=== PATIENT | female | born 1960 | race Caucasian/White ===

== ENCOUNTER 2017-03-30 18:07 | Emergency (ER) | payer BC ==
[~2017-03-30] VITALS: Ht 157.5 cm; Wt 61.3 kg
[~2017-03-30 18:07] MED LIST: ATIV1TAB10 PO; COEN200C PO; CYCL5TA PO; CYMB60CA3 PO; ESTR62CR PV; ESTROGEN CREAM PV; EXCETAB81 PO; FLEXERIL PO; IMIT50TA PO; LEVO50TA5 PO; LORA10TA2 PO; PANT40TA2 PO; SIMV20TA2 PO; TEGR100T3 PO; TRAZ-136 PO; TRAZ50TA11 PO; TRIC145T22 PO; VITMTA PO; ZANTTAB9 PO
[2017-03-30] MEDS ORDERED: CYMB60CA3 PO (18:17)
[2017-03-30] MEDS ORDERED: TRAZO50TA PO (18:17)
[2017-03-30] MEDS ORDERED: PROT1TAB2 PO (18:19)
[2017-03-30 18:39] LABS: BASO % 0.7 % (0.0-1.0); EOS % 0.3 % (0.0-3.0); LARGE UNSTAINED CELL # 0.1 K/mm3 (0.0-0.4); LARGE UNSTAINED CELL % 1.4 % (0.0-4.0); LYMPH # 1.9 K/mm3 (1.5-4.5); MEAN CORPUSCULAR HEMOGLOBIN 30.4 pg (27.0-33.0); MEAN CORPUSCULAR VOLUME 89.5 fl (80.0-96.0); MONO # 0.4 K/mm3 (0.0-0.8); MONO % 5.5 % (0.0-5.0); NEUTROPHILS # 4.6 K/mm3 (1.8-7.7); NEUTROPHILS % 66.2 % (36.0-66.0); PLATELET COUNT, AUTOMATED 224 k/mm3 (150-450); RED CELL DISTRIBUTION WIDTH 12.5 % (11.5-14.5); WHITE BLOOD COUNT 6.9 K/mm3 (4.0-10.0)
[2017-03-30 18:53] LABS: INR 0.87
[2017-03-30 19:06] LABS: ALBUMIN 4.2 GM/DL (3.2-5.2); ALBUMIN/GLOBULIN RATIO 1.24 (1.00-1.93); ALKALINE PHOSPHATASE 74 U/L (45-117); ALT/SGPT 26 U/L (12-78); ANION GAP 2 MEQ/L (8-16); AST/SGOT 26 U/L (15-37); BILIRUBIN,DIRECT < 0.1 MG/DL (0.0-0.2); BILIRUBIN,TOTAL 0.5 MG/DL (0.2-1.0); BLOOD UREA NITROGEN 11 MG/DL (7-18); CALCIUM LEVEL 9.2 MG/DL (8.5-10.1); CARBON DIOXIDE LEVEL 32 MEQ/L (21-32); CHLORIDE LEVEL 105 MEQ/L (98-107); CREATININE FOR GFR 0.89 MG/DL (0.55-1.02); GLOMERULAR FILTRATION RATE > 60.0 (>51); GLUCOSE, FASTING 85 MG/DL (70-105); POTASSIUM SERUM 4.1 MEQ/L (3.5-5.1); SODIUM LEVEL 139 MEQ/L (136-145); TOTAL PROTEIN 7.6 GM/DL (6.4-8.2)
[2017-03-30] MEDS ORDERED: ASPIRIN 81 MG CHEW TABLET PO ONE (19:30)
[2017-03-30] MEDS ORDERED: ISOVUE-370 76% 100ML VIAL (Q9967) As Ordered ONE (19:37)
[2017-03-30] MEDS ORDERED: MORPHINE 2 MG/ML 1ML SYRINGE IV ONE (20:00)
--- NOTE | 2017-03-30 20:10 | REPUSA ---
CT angiogram of the chest Clinical statement: Chest pain and shortness of breath. Technique: Multiple axial CT images were obtained from the thoracic inlet through the upper abdomen a fter a bolus administration of nonionic intravenous contrast. Coronal and sagittal reconstructions we re also obtained. No comparison is available. Findings: The pulmonary arteries are well-opacified with contrast, with no intraluminal filling defec ts to suggest embolism. The thoracic aorta is unremarkable. Thyroid gland is within normal limits. Th ere is no thoracic lymphadenopathy. There are no pericardial or pleural effusions. The lungs are ben r. Limited imaging of the upper abdomen is unremarkable. There are no suspicious osseous lesions. Impression: Unremarkable CT examination of the chest. No evidence of pulmonary embolism.
[2017-03-30 20:37] LABS: ERYTHROCYTE SEDIMENTATION RATE 7 mm/hr (0-30)
[2017-03-30 23:12] VITALS: BP 115/69
--- NOTE | 2017-03-31 08:13 | REP ---
Portable chest x-ray: Single view. History: Chest pain. Comparison chest x-ray: August 24, 2015. Findings: EKG electrodes are seen. The lungs are well inflated and clear. Heart size is normal. Pulmonary vasculature is not increased. No bony abnormality is seen. Impression: Negative portable chest x-ray. Signed by Eyal Pedroza MD 03/31/2017 08:30 A
--- NOTE | 2017-03-31 08:49 | ECGEPIP ---
Stationary ECG Study [facility] - ED Test Date: 2017-03-30 Pat Name: AMBER GUERIN Department: Room: - Gender: F Museum Attendant: tk : 1960 Requested By: Kayla Umaña Order Number: [id number] Reading MD: Oskar Cook Measurements Intervals [place] Rate: 63 P: 45 NH: 139 QRS: 26 QRSD: 92 T: 72 QT: 376 QTc: 385 Interpretive Statements SINUS RHYTHM INC. RBBB LOW QRS VOLTAGE IN PRECORDIAL LEADS SIMILAR TO 08/24/15 Electronically Signed On 03-31-2017 8:49:06 EDT by Oskar Cook
== END 2017-03-30 23:52 | disposition home or self-care (01) ==
LOC: M ED 18:07
DX: R07.89 Other chest pain (principal); M79.1 Myalgia; E78.5 Hyperlipidemia, unspecified; F32.9 Major depressive disorder, single episode, unspecified; F41.9 Anxiety disorder, unspecified; E03.9 Hypothyroidism, unspecified; M26.609 Unspecified temporomandibular joint disorder, unspecified side; Z79.899 Other long term (current) drug therapy; Z88.5 Allergy status to narcotic agent; Z88.1 Allergy status to other antibiotic agents
CPT/HCPCS: 71010; 71275; 80048; 80076; 82550; 82553; 83690; 83880; 84443; 85025; 85610; 85652; 86140; 93005; 93041; 96374; 99284; Q9967

== ENCOUNTER → 2017-10-05 | Outpatient (REF) | payer BC ==
[2017-10-05 18:23] LABS: INFLUENZA A AMPLIFICATION NEGATIVE (NEGATIVE); INFLUENZA B AMPLIFICATION NEGATIVE (NEGATIVE)
== END ==
LOC: M LAB REF 16:32
DX: Z11.59 Encounter for screening for other viral diseases (principal)
CPT/HCPCS: 87502

== ENCOUNTER 2017-10-16 11:57 | Emergency (ER) | payer OTHER, BC ==
[2017-10-16] MEDS: IBUPROFEN 800 MG TAB PO (12:38)
[2017-10-16] MEDS: ONDANSETRON 4 MG ORAL DISINTEGRATING TAB (S0181) PO (12:39)
[2017-10-16] MEDS: NORCO, ANEXSIA 5/325MG TABLET (HYDROcodone/ACETAMINOPHEN) PO (12:44)
== END 2017-10-16 13:43 | disposition home or self-care (01) ==
LOC: M ED 11:57
DX: S83.91XA Sprain of unspecified site of right knee, initial encounter (principal); X50.9XXA Other and unspecified overexertion or strenuous movements or postures, initial encounter; Y92.89 Other specified places as the place of occurrence of the external cause; E07.9 Disorder of thyroid, unspecified; E78.9 Disorder of lipoprotein metabolism, unspecified; Z87.81 Personal history of (healed) traumatic fracture; Z88.5 Allergy status to narcotic agent; Z88.1 Allergy status to other antibiotic agents; Z79.899 Other long term (current) drug therapy
CPT/HCPCS: 73564

== ENCOUNTER 2018-08-27 09:02 | Emergency (ER) | payer BC, OTHER ==
[~2018-08-27] VITALS: Ht 157.5 cm; Wt 61.8 kg
[2018-08-27 09:02] VITALS: BP 133/60
[~2018-08-27 09:02] MED LIST changes: +LORA0.5T11 PO; -LORA10TA2 PO; +LORA10TA3 PO; +NORCOTAB PO; -PANT40TA2 PO; +PANT40TA3 PO; +PROT1TAB2 PO; -TRAZ-136 PO; +TRAZ-160 PO; +TRAZ-163 PO; -TRAZ50TA11 PO; +TRAZO50TA PO; +ZOFR4TAB14 PO
[2018-08-27] MEDS ORDERED: DULO30CA47 (09:17)
[2018-08-27] MEDS ORDERED: TRAZ-160 PO (09:17)
[2018-08-27] MEDS ORDERED: PANT40TA3 PO (09:17)
[2018-08-27] MEDS ORDERED: PRAV20TA2 PO (09:17)
[2018-08-27] MEDS ORDERED: TESS100C PO (09:40)
[2018-08-27] MEDS ORDERED: AUGM875T28 PO (09:40)
--- NOTE | 2018-08-27 10:02 | REP ---
CHEST PA AND LATERAL: 08/27/2018. Comparison: Portable chest and CT angio 03/30/2017, chest x-ray 08/24/2015. Clinical history: Cough for 4 days. The two views are provided. There is no pleural effusion or dense consolidation. The heart, mediastinal and hilar contours are normal. Aorta and airway were grossly intact. No significant peribronchial thickening evident. Bony thorax shows no compression deformity. No free air under the diaphragm. Impression: 1. No acute cardiopulmonary change. Stable chest. Electronically Signed by Osvaldo Pichardo MD 08/27/2018 09:54 A
== END 2018-08-27 09:45 | disposition home or self-care (01) ==
LOC: M ED 09:02
DX: J02.0 Streptococcal pharyngitis (principal); R05 Cough; E03.9 Hypothyroidism, unspecified; F41.9 Anxiety disorder, unspecified; F32.9 Major depressive disorder, single episode, unspecified; F43.10 Post-traumatic stress disorder, unspecified; G43.909 Migraine, unspecified, not intractable, without status migrainosus; Z88.5 Allergy status to narcotic agent; Z88.1 Allergy status to other antibiotic agents; Z79.899 Other long term (current) drug therapy

== ENCOUNTER → 2018-10-08 | Outpatient (CLI) | payer BC ==
[~2018-10-08] MED LIST changes: +AUGM875T28 PO; +DULO30CA47; +PRAV20TA2 PO; +TESS100C PO
[2018-10-08 10:36] LABS: RHEUMATOID FACTOR QUANT < 10.0 IU/ML (<15.0); TOTAL PROTEIN 6.8 GM/DL (6.4-8.2)
[2018-10-10 14:10] LABS: ANTINUCLEAR ANTIBODIES DIRECT Negative (Negative)
[2018-10-12 07:41] LABS: ALBUMIN % 65.7 % (55.8-66.1); ALPHA-1-GLOBULIN % 3.6 % (2.9-4.9)
[2018-10-12 07:42] LABS: ALBUMIN 4.47 GM/DL (3.29-5.55); ALPHA-1-GLOBULINS 0.24 GM/DL (0.17-0.41); ALPHA-2-GLOBULINS 0.65 GM/DL (0.42-0.99); ALPHA-2-GLOBULINS % 9.6 % (7.1-11.8); BETA-1-GLOBULINS 0.35 GM/DL (0.28-0.60); BETA-1-GLOBULINS % 5.1 % (4.7-7.2); BETA-2-GLOBULINS % 5.9 % (3.2-6.5); GAMMA GLOBULIN % 10.1 % (11.1-18.8); GAMMA GLOBULINS 0.69 GM/DL (0.65-1.58)
== END ==
LOC: M LAB 09:05
PROVIDERS: ATTEND Nurse Practitioner Family
DX: D48.5 Neoplasm of uncertain behavior of skin (principal)

== ENCOUNTER → 2019-01-05 | Outpatient (REF) | payer BC ==
[~2019-01-05] MED LIST changes: -CYCL5TA PO; +CYCL5TAB5 PO; +HYDR-3715 PO; -NORCOTAB PO; +SUCR1SS PO; -TRAZ-160 PO; +TRAZ-252 PO; +TRAZ1TAB10 PO; -TRAZO50TA PO
[2019-01-05 22:02] LABS: APPEARANCE, URINE MANUAL HAZY (CLEAR); COLOR, URINE MANUAL LT YELLOW (YELLOW)
[2019-01-05 22:04] LABS: GLUCOSE, URINE (UA) MANUAL NEGATIVE (NEGATIVE); KETONE, URINE MANUAL NEGATIVE (NEGATIVE); PROTEIN, URINE MANUAL NEGATIVE (NEGATIVE); UROBILINOGEN, URINE MANUAL NORMAL (NORMAL)
[2019-01-05 22:05] LABS: BILIRUBIN, URINE MANUAL NEGATIVE (NEGATIVE); BLOOD URINE MANUAL NEGATIVE (NEGATIVE); LEUKOCYTE ESTERASE, URINE MAN POSITIVE (NEGATIVE); NITRITE, URINE MANUAL NEGATIVE (NEGATIVE)
[2019-01-05 22:12] LABS: RBC, URINE NONE SEEN /hpf (0-3); SQUAMOUS EPITHELIAL CELL URINE SMALL AMOUNT /hpf (SMALL AMT)
[2019-01-05 22:13] LABS: BACTERIA, URINE NONE SEEN
== END ==
LOC: M LAB REF 14:10
PROVIDERS: ATTEND Physician Assistant
DX: N39.0 Urinary tract infection, site not specified (principal)

== ENCOUNTER 2019-01-09 16:10 | Emergency (ER) | payer BC ==
[~2019-01-09] VITALS: Ht 157.5 cm; Wt 59.3 kg
[~2019-01-09 16:10] MED LIST changes: -SUCR1SS PO
[2019-01-09 17:56] LABS: BASO % 0.3 % (0.0-1.0); EOS # 0.2 10^3/uL (0.0-0.50); EOS % 2.5 % (0.0-3.0); HEMATOCRIT 43.7 % (36.0-47.0); HEMOGLOBIN 14.5 g/dl (12.0-15.5); LYMPH # 1.2 10^3/uL (1.5-4.5); MEAN CORPUSCULAR HGB CONC 33.2 g/dl (32.0-36.5); MEAN CORPUSCULAR VOLUME 90.3 fl (80.0-96.0); MONO # 0.7 10^3/uL (0.0-0.8); MONO % 11.4 % (0.0-5.0); NEUTROPHILS # 4.3 10^3/uL (1.8-7.7); NEUTROPHILS % 66.5 % (36.0-66.0); PLATELET COUNT, AUTOMATED 176 10^3/uL (150-450); RED BLOOD COUNT 4.84 10^6/uL (4.00-5.40); WHITE BLOOD COUNT 6.4 10^3/uL (4.0-10.0)
[2019-01-09 18:08] LABS: ALBUMIN 3.8 GM/DL (3.2-5.2); BILIRUBIN,DIRECT 0.1 MG/DL (0.0-0.2); BILIRUBIN,TOTAL 0.5 MG/DL (0.2-1.0); TOTAL PROTEIN 6.7 GM/DL (6.4-8.2)
[2019-01-09] MEDS ORDERED: MORPHINE 4 MG/ML 1ML VIAL/SYRINGE (J2270) IV ONE (19:00)
[2019-01-09] MEDS ORDERED: ONDANSETRON 4MG/2ML VIAL (J2405) IV ONE (19:00)
[2019-01-09] MEDS ORDERED: NS 1,000 ML IV ONE (19:00)
[2019-01-09] MEDS ORDERED: ISOVUE-370 76% 100ML VIAL (Q9967) As Ordered ONE (19:03)
--- NOTE | 2019-01-09 21:14 | REPVR ---
EXAM: CT Abdomen and Pelvis With Contrast EXAM DATE/TIME: 01/09/2019 7:39 PM CLINICAL HISTORY: 58 years old, female; Abdominal pain; Localized; Upper; Additional info: Upper abdominal pain; HX of pancreatits TECHNIQUE: Imaging protocol: Axial computed tomography images of the abdomen and pelvis with intravenous contrast. Coronal and sagittal reformatted images were created and reviewed. Radiation optimization: All CT scans at this facility use at least one of these dose optimization techniques: automated exposure control; mA and/or kV adjustment per patient size (includes targeted exams where dose is matched to clinical indication); or iterative reconstruction. Contrast material: ISOVUE 370; Contrast volume: 100 ml; Contrast route: IV; COMPARISON: CT ABD PELVIS WITH CONTRAST 08/24/2015 4:34 PM FINDINGS: Pleural space: There are very small bilateral pleural effusions. Heart: There is a small pericardial effusion. ABDOMEN: Liver: There is a 1 cm enhancing lesion in the lateral segment the left lobe the liver beneath the liver capsule unchanged from previous. Peripheral nodular enhancement suggests hemangioma. Gallbladder and bile ducts: Normal. No calcified stones. No ductal dilation. Pancreas: No peripancreatic inflammation. There is bifid configuration dominant duct of Santorini drainage Spleen: Normal. No splenomegaly. Adrenals: Normal. No mass. Kidneys and ureters: Normal. No hydronephrosis. Stomach and bowel: Normal. No obstruction. No mucosal thickening. Appendix: The appendix not seen as a separate structure. PELVIS: Bladder: Unremarkable as visualized. Reproductive: Unremarkable as visualized. ABDOMEN and PELVIS: Intraperitoneal space: Normal. No free air. No significant fluid collection. Bones/joints: No acute fracture. No dislocation. Soft tissues: Calcifications within the subcutaneous fat of the left buttock suggests fat necrosis. Vasculature: There is mild arteriosclerotic change of the abdominal aorta with no findings of aneurysm. Lymph nodes: Normal. No enlarged lymph nodes. IMPRESSION: 1. No CT findings to suggest pancreatitis 2. 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 Stable hepatic hemangioma. 4. Small bilateral pleural effusions with small pericardial effusion. No significant change from previous. COMMENT: Consistent with the [employer]'s Incidental Findings Committee Report (J Am Daxa Radiol 2010): Unless the patient's specific circumstances suggest otherwise, any liver lesion 0.5 cm or less, any cystic kidney lesion less than 1.0 cm, and/or any adrenal lesion 1.0 cm or less not otherwise characterized in this report as possessing suspicious or indeterminate imaging features is/are highly likely to be benign and do not require follow-up imaging or biopsy. Electronically signed by: Opal Silvestre On 01/09/2019 21:13:44 PM
[2019-01-09] MEDS ORDERED: GI COCKTAIL 50ML BTL(HYOSCYAMINE/MAALOX/LIDOCAINE VISCOUS)(1:3:1) PO ONE (22:00)
[2019-01-09] MEDS ORDERED: SUCR1SS PO (22:35)
[2019-01-09] MEDS ORDERED: PANT40TA3 PO (22:35)
[2019-01-09 22:39] VITALS: BP 111/52
--- NOTE | 2019-01-10 13:03 | ED PDOC ---
Post-Departure Follow-Up nelly buckner faxed formal report of ct abd/p for fu Jason Godinez MD Jan 10, 2019 13:03
== END 2019-01-09 22:50 | disposition home or self-care (01) ==
LOC: M ED 16:10
DX: K27.9 Peptic ulcer, site unspecified, unspecified as acute or chronic, without hemorrhage or perforation (principal); G43.909 Migraine, unspecified, not intractable, without status migrainosus; D18.09 Hemangioma of other sites; J91.8 Pleural effusion in other conditions classified elsewhere; Z79.899 Other long term (current) drug therapy; Z88.5 Allergy status to narcotic agent; Z88.1 Allergy status to other antibiotic agents
CPT/HCPCS: 74177; 80047; 80076; 81001; 83605; 83690; 85025; 87086; 96361; 96374; 96375; 99284; J2270; J2405; Q9967

== ENCOUNTER 2019-09-28 13:00 | Inpatient (IN) | payer BC ==
[~2019-09-28] VITALS: Ht 157.5 cm; Wt 61.0 kg
[~2019-09-28 13:00] MED LIST changes: -COEN200C PO; -DULO30CA47; +DULO30CA47 PO; -LORA0.5T11 PO; +LORA0.5T5 PO; +RA C200C2 PO; -SIMV20TA2 PO; +SIMV20TA22 PO; +SUCR1SS PO; -TRAZ-163 PO; +TRAZ-257 PO
[2019-09-28] MEDS ORDERED: DULO1CAP5 (13:13)
[2019-09-28] MEDS ORDERED: ISOVUE-370 76% 100ML VIAL (Q9967) As Ordered ONE (13:54)
[2019-09-28 13:58] LABS: BASO # 0.1 10^3/uL (0.0-0.2); BASO % 0.8 % (0.0-1.0); HEMATOCRIT 44.7 % (36.0-47.0); HEMOGLOBIN 14.6 g/dl (12.0-15.5); LYMPH # 1.9 10^3/uL (1.5-5.0); LYMPH % 23.6 % (24.0-44.0); MEAN CORPUSCULAR HEMOGLOBIN 29.3 pg (27.0-33.0); MEAN CORPUSCULAR HGB CONC 32.7 g/dl (32.0-36.5); MEAN CORPUSCULAR VOLUME 89.6 fl (80.0-96.0); MONO # 0.5 10^3/uL (0.0-0.8); MONO % 6.1 % (0.0-5.0); NEUTROPHILS # 4.6 10^3/uL (1.5-8.5); NEUTROPHILS % 57.2 % (36.0-66.0); PLATELET COUNT, AUTOMATED 201 10^3/uL (150-450); RED BLOOD COUNT 4.99 10^6/uL (4.00-5.40)
[2019-09-28] MEDS ORDERED: ONDANSETRON 4MG/2ML VIAL (J2405) IV ONE (14:00)
[2019-09-28] MEDS ORDERED: NS 1,000 ML IV ONE (14:00)
[2019-09-28 14:23] LABS: ALBUMIN 4.1 GM/DL (3.2-5.2); BILIRUBIN,DIRECT 0.1 MG/DL (0.0-0.2); BILIRUBIN,TOTAL 0.7 MG/DL (0.2-1.0); TOTAL PROTEIN 6.8 GM/DL (6.4-8.2)
[2019-09-28] MEDS: MORPHINE 2 MG/ML 1ML VIAL (J2270) IV PRN ×3 (14:34→20:56)
--- NOTE | 2019-09-28 14:38 | REP ---
Clinical: Left-sided abdominal pain. Technique: Axial contrast enhanced images from the lung bases to the pubic symphysis with coronal and sagittal re-formations using 100 ml Isovue 370 intravenous contrast material. Comparison: 01/09/2019. Findings: Small pericardial effusion noted and similar to prior examination. Liver, spleen, pancreas, gallbladder, bilateral adrenal glands and kidneys are normal. A mild gastritis cannot definitively be excluded and should be correlated with symptoms. The small and large bowel is without obstruction or acute inflammatory process. Pelvis demonstrates normal bladder and age-appropriate uterus/adnexa. No pelvic fluid or ascites. No adenopathy. No free air. Abdominal aorta without aneurysm or dissection. Musculoskeletal structures without acute abnormality. Impression: 1. A mild gastritis cannot be excluded and should be correlated clinically. 2. Small pericardial effusion unchanged compared to prior examinations. 3. No further acute abdominopelvic pathology appreciated. No ascites, focal inflammatory stranding, or adenopathy. Electronically Signed by Dwayne Guzman MD 09/28/2019 02:30 P
[2019-09-28] MEDS ORDERED: PROT1TAB2 PO (16:10)
[2019-09-28] MEDS ORDERED: COQ1200C PO (16:10)
[2019-09-28] MEDS ORDERED: VITMTA PO (16:10)
[2019-09-28] MEDS ORDERED: PRAV20TA2 PO (16:10)
[2019-09-28] MEDS ORDERED: CVS1500T PO (16:10)
[2019-09-28] MEDS ORDERED: IBUP200C28 PO (16:10)
[2019-09-28] MEDS ORDERED: RA T500C2 PO (16:10)
[2019-09-28] MEDS ORDERED: LORA0.5T5 PO (16:10)
[2019-09-28] MEDS ORDERED: LORazepam 0.5 MG TAB PO PRN (18:30)
[2019-09-28] MEDS ORDERED: PILL CUTTER 1 EACH XX PRN (19:00)
[2019-09-28 19:25] LABS: CHOLESTEROL RISK RATIO 7.808 (<5)
[2019-09-28 20:35] VITALS: BP 124/76
[2019-09-28] MEDS: LORazepam 0.5 MG TAB PO SCH (20:56)
[2019-09-28] MEDS: traZODone 50 MG TAB PO SCH (20:56)
[2019-09-28] MEDS: NS 1,000 ML IV SCH (20:57)
--- NOTE | 2019-09-28 22:41 | HPEPDOC ---
General Date of Admission Sep 28, 2019 at 18:30 Date of Service: Sep 28, 2019 Attending Physician: SEBASTIÁN BENDER MD Chief Complaint The patient is a 58-year-old female admitted with a reason for visit of Pancreatitis. Source: Patient, Family Timing/Duration: 24 hours Severity: Moderate Associated Symptoms: Other (abdominal pain) History of Present Illness 58 yo woman with GERD, HLD non compliant with her statin, anxiety, depression, hypothyroidism and prior history of idiopathic pancreatitis 5 years ago who presented to the ED wtih acute epigastric pain over 24 hours with associated prior constipation and trying to manage it with stool softeners at home. She reports nausea and severe abdominal pain when she attempted to eat that prompted her presentation. In the ED, she was hemodynamically stable and afebrile and was reporting severe epigastric pain. Studies were notable for lipase to 1103, hyperlipidemia and triglyceridemia to 309, WBC 8, Hgb 14,6, lactate wnl, Cr 0.8, bland UA and CT A/P that showed a previously noted small pericardial effusion and no evidence of radiologically apparent pancreatitis. She was given 1L Ns, morphine and zofran and admitted to medicine for acute pancreatitis. Home Medications Scheduled Duloxetine HCl (Duloxetine HCl) 30 Mg Cap, 90 MG PO DAILY, (Reported) Glucosamine HCl (Glucosamine HCl) 1,500 Mg Tablet, 1,500 MG PO DAILY, (Reported) Lorazepam (Lorazepam) 0.5 Mg Tablet, 0.5 MG PO QHS, (Reported) Multivitamins (Thera M Plus Tablet) 1 Each Tablet, 1 TAB PO DAILY, (Reported) Pravastatin Sodium (Pravastatin Sodium) 20 Mg Tablet, 20 MG PO DAILY, (Reported) Trazodone HCl (Trazodone HCl) 50 Mg Tab, 75 MG PO QHS, (Reported) Turmeric Root Extract (Turmeric) 500 Mg Capsule, 500 MG PO DAILY, (Reported) Ubidecarenone (Co Q-10) 200 Mg Capsule, 200 MG PO DAILY, (Reported) Scheduled PRN Ibuprofen (Ibuprofen) 200 Mg Capsule, 800 MG PO QID PRN for PAIN, (Reported) Lorazepam (Lorazepam) 0.5 Mg Tab, 0.5 MG PO DAILY PRN for ANXIETY, (Reported) Pantoprazole Sodium (Protonix) 40 Mg Tablet.dr, 40 MG PO DAILY PRN for ULCERS, (Reported) Allergies Coded Allergies: tetracycline (Verified Allergy, Mild, rash, 01/09/19) codeine (Verified Adverse Reaction, Mild, vomits, 01/09/19) Past Medical History Medical History pancreatitis HLD anxiety depression OA GERD Surgical History tubal ligation ACL repair multiple ex-laps Social History Alcohol: Denies Drugs: denies Recent Travel/Sick Contacts: Denies: Recent travel, Recent sick contacts Psychosocial History: Anxiety, Depression A-FIB/CHADSVASC A-FIB History Current/History of A-Fib/PAF?: No Current PO Anticoag Therapy: No Age/Risk Factor Scoring CHADSVASC: CHADSVASC Response (Comments) Value Age Risk Factor Age < 65 years old 0 Gender Risk Factor Female 1 Hx of CHF No 0 Hx of HTN No 0 Hx of Stroke/TIA/or VTE No 0 Hx of Diabetes No 0 Hx of Vascular Disease No 0 Total 1 Treatment Treatment ordered: NONE Reason Anticoagulant not given: Not indicated/[id number] Review of Systems Constitutional: Denies: Chills, Fever, Night Sweats Eyes: Denies: Pain, Vision change ENT: Denies: Head Aches, Ear Pain, Dysphagia Skin: Denies: Rash, Lesions, Jaundice, Bruising, Itching, Dry, Breakdown, Nail Changes, Other Pulmonary: Denies: Dyspnea, Cough Cardiovascular: Denies: Chest Pain, Palpitations, Orthopnea, Paroxysmal Noc. Dyspnea, Lt Headedness Gastrointestinal: Reports: Nausea, Vomiting, Abdominal Pain, Constipation Genitourinary: Denies: Dysuria, Frequency, Incontinence, Retention Hematologic: Denies: Bruising, Bleeding Excessively Musculoskeletal: Denies: Neck Pain, Back Pain, Joint Pain, Muscle Pain, Spasms Neurological: Denies: Weakness, Numbness, Change in speech, Confusion Psych: Reports: Mood Normal; Denies: Depression, Memory Issues Physical Examination General Exam: Positive: Alert, No Acute Distress Eye Exam: Positive: PERRLA, Conjunctiva & lids normal, EOMI; Negative: Sclera icteric ENT Exam: Positive: Atraumatic, Mucous membr. moist/pink, Pharynx Normal Neck Exam: Positive: Supple; Negative: JVD, thyromegaly Chest Exam: Negative: Clear to auscultation, Normal air movement, Rales, Rhonchi, Wheezing, Diminished, Other Heart Exam: Positive: Rate Normal, Regular Rhythm, Normal S1, Normal S2; Negative: Murmurs, Rubs Abdomen Exam: Positive: Normal bowel sounds, Soft, Tenderness (epigastric but also diffuse); Negative: Hepatospenomegaly Extremity Exam: Positive: Normal pulses; Negative: Clubbing, Cyanosis, Edema Skin Exam: Positive: Nl turgor and temperature; Negative: Breakdown, Lesion Neuro Exam: Positive: Normal Speech, Strength at 5/5 X4 ext, Normal Tone, Cranial Nerves 3-12 NL, Reflexes 2+ Psych Exam: Positive: Mental status NL, Mood NL, Oriented x 3 Vital Signs Vital Signs Date Time Temp Pulse Resp B/P (MAP) Pulse Ox O2 Delivery O2 Flow Rate FiO2 09/28/19 21:06 15 09/28/19 19:39 98.0 71 120/66 (84) 94 Room Air Laboratory Data Labs 24H Laboratory Tests 2 09/28/19 13:37: Lactic Acid Level 0.6 09/28/19 13:38: Immature Granulocyte % (Auto) 0.3, Neutrophils (%) (Auto) 57.2, Lymphocytes (%) (Auto) 23.6L, Monocytes (%) (Auto) 6.1H, Eosinophils (%) (Auto) 12.0H, Basophils (%) (Auto) 0.8, Neutrophils # (Auto) 4.6, Lymphocytes # (Auto) 1.9, Monocytes # (Auto) 0.5, Eosinophils # (Auto) 1.0H, Basophils # (Auto) 0.1, Nucleated Red Blood Cells % (auto) 0.0, Total Bilirubin 0.7, Direct Bilirubin 0.1, Aspartate Amino Transf (AST/SGOT) 19, Alanine Aminotransferase (ALT/SGPT) 22, Alkaline Phosphatase 68, Total Protein 6.8, Albumin 4.1, Albumin/Globulin Ratio 1.52, Triglycerides Level 309H, Total Cholesterol 367H, LDL Cholesterol 258H, Non-HDL Cholesterol (LDL + VLDL) 320, Total HDL Cholesterol 47, Cholesterol/HDL Ratio 7.808H, Lipase 1103H 09/28/19 13:43: POC Glucose (Misc Panel) 92, POC Sodium (Misc Panel) 139, POC Potassium (Misc Panel) 4.3, POC Chloride (Misc Panel) 101, POC Total CO2 (Misc Panel) 28.0H, POC Blood Urea Nitrogen (Misc Panel 10, POC Ionized Calcium (Misc Panel) 4.7, POC Creatinine (Misc Panel) 0.8, POC Hematocrit (Misc Panel) 43.0 09/28/19 15:47: Urine Color COLORLESS, Urine Appearance CLEAR, Urine pH 7.0, Urine Specific Springer 1.026, Urine Protein NEGATIVE, Urine Glucose (UA) NEGATIVE, Urine Ketones NEGATIVE, Urine Blood NEGATIVE, Urine Nitrite NEGATIVE, Urine Bilirubin NEGATIVE, Urine Urobilinogen 0.2, Urine Leukocyte Esterase NEGATIVE, Urine WBC (Auto) 2, Urine RBC (Auto) 1, Urine Hyaline Casts (Auto) 0, Urine Bacteria (Auto) NEGATIVE, Urine Squamous Epithelial Cells 0, Urine Sperm (Auto) CBC/BMP Laboratory Tests 09/28/19 13:38 Assessment/Plan 58 yo woman with GERD, HLD non compliant with her statin, anxiety, depression, hypothyroidism and prior history of idiopathic pancreatitis 5 years ago who presented to the ED with acute epigastric now being admitted to medicine for acute pancreatitis. Pancreatitis: unclear precipitant. Has HLD with hypertriglyceridemia and non complaint with statin, no alcohol or other culprit drugs -s/p 1L NS -fluids at 200cc/hr -NPO -morphine 2Q4HP GERD: continue protonix Psych meds: continue PRN Ativan, trazodone and duloxetine HLD: restart pravastatin DVT ppx: lovenox Plan / VTE VTE Prophylaxis Ordered?: Yes SEBASTIÁN BENDER MD Sep 28, 2019 22:41
[2019-09-29] MEDS: NS 1,000 ML IV SCH ×7 (00:51→21:10)
[2019-09-29] MEDS: MORPHINE 2 MG/ML 1ML VIAL (J2270) IV PRN ×3 (04:15→21:21)
[2019-09-29 05:49] VITALS: BP 109/61
--- NOTE | 2019-09-29 06:29 | IPNPDOC ---
Text Note Date of Service The patient was seen on 09/29/19. NOTE Subjective: -No complaints this morning -Reports that she is constipated -Pain is well controlled Objective: General: Alert, No Acute Distress Eye: PERRLA, Conjunctiva & lids normal, EOMI, anicteric ENT: MMM Neck: supple, no JVD Chest: Clear to auscultation, Normal air movement, without rales, rhonchi or wheezing Heart: RRR, no mrg Abdomen: Normal bowel sounds, Soft, mildly tender epigastrum on palpation, no distention and no noted organomegaly Extremity: WWP, no LE edema Skin: no flushing, lesions, rashes Neuro: Normal Speech, Strength at 5/5 X4 ext, Cranial Nerves 3-12 NL Psych: Mental status NL, Mood NL, Oriented x 3 Labs: reviewed Assessment: 58 yo woman with GERD, HLD non compliant with her statin, anxiety, depression, hypothyroidism and prior history of idiopathic pancreatitis 5 years ago who presented to the ED with acute epigastric now being admitted to medicine for acute pancreatitis. Pancreatitis: Epigastric pain with N/V and elevated lipase with unclear precipitant. Has HLD with hypertriglyceridemia and non complaint with statin, no alcohol or other culprit drugs -continue fluids at 200cc/hr -NPO until patient reports abdominal pain improvement and will slowly reintroduce diet -morphine 2Q4HP -s/p CT A/P without kvng abdominal pathology GERD: continue protonix Psych meds: continue PRN Ativan, trazodone and duloxetine HLD: switch low dose pravastatin to lipitor 40 DVT ppx: lovenox VS,Fishbone, I+O VS, Fishbone, I+O Laboratory Tests 09/28/19 13:38 Vital Signs Date Time Temp Pulse Resp B/P (MAP) Pulse Ox O2 Delivery O2 Flow Rate FiO2 09/29/19 04:25 16 09/28/19 20:35 97.9 79 124/76 (92) 96 Room Air I&O- Last 24 Hours up to 6 AM 09/29/19 06:00 Intake Total 1000 ml Output Total 400 ml Balance 600 ml SEBASTIÁN BENDER MD Sep 29, 2019 06:29
[2019-09-29 08:07] LABS: HEMATOCRIT 36.5 % (36.0-47.0); MEAN CORPUSCULAR HEMOGLOBIN 29.6 pg (27.0-33.0); MEAN CORPUSCULAR HGB CONC 32.3 g/dl (32.0-36.5); MEAN CORPUSCULAR VOLUME 91.5 fl (80.0-96.0); PLATELET COUNT, AUTOMATED 152 10^3/uL (150-450); RED BLOOD COUNT 3.99 10^6/uL (4.00-5.40); WHITE BLOOD COUNT 5.5 10^3/uL (4.0-10.0)
[2019-09-29 08:13] LABS: HEMOGLOBIN 11.8 g/dl (12.0-15.5)
[2019-09-29] MEDS: PANTOPRAZOLE 40MG TAB (PROTONIX) PO SCH (08:17)
[2019-09-29] MEDS: ATORVASTATIN 20 MG TAB PO SCH (08:17)
[2019-09-29] MEDS: MULTIVITAMINS/MINERALS THERAP 1 TAB PO SCH (08:17)
[2019-09-29] MEDS: DULoxetine 30 MG CAP (CYMBALTA) PO SCH (08:17)
[2019-09-29] MEDS: ENOXAPARIN 40 MG/0.4 ML SYRINGE (J1650) SC SCH (08:17)
[2019-09-29 08:37] LABS: ALBUMIN 2.8 GM/DL (3.2-5.2); ALT/SGPT 16 U/L (12-78); BILIRUBIN,TOTAL 0.5 MG/DL (0.2-1.0); BLOOD UREA NITROGEN 8 MG/DL (7-18); CALCIUM LEVEL 7.5 MG/DL (8.5-10.1); CARBON DIOXIDE LEVEL 30 MEQ/L (21-32); CHLORIDE LEVEL 114 MEQ/L (98-107); CREATININE FOR GFR 0.73 MG/DL (0.55-1.30); GLOMERULAR FILTRATION RATE > 60.0 (>51); GLUCOSE, FASTING 89 MG/DL (70-100); POTASSIUM SERUM 3.9 MEQ/L (3.5-5.1); SODIUM LEVEL 145 MEQ/L (136-145)
[2019-09-29] MEDS ORDERED: PRAVASTATIN 20 MG TAB PO SCH (09:00)
[2019-09-29 14:00] VITALS: BP 104/68
[2019-09-29] MEDS: MOM 30ML SUSPENSION UDC PO PRN (18:51)
[2019-09-29] MEDS: LORazepam 0.5 MG TAB PO SCH (21:09)
[2019-09-29] MEDS: SENOKOT S TAB PO SCH (21:10)
[2019-09-29] MEDS: traZODone 50 MG TAB PO SCH (21:10)
[2019-09-29 22:25] VITALS: BP 132/67
[2019-09-30] MEDS: NS 1,000 ML IV SCH ×3 (00:16→14:12)
[2019-09-30 06:00] VITALS: BP 106/56
[2019-09-30 08:12] LABS: HEMATOCRIT 38.7 % (36.0-47.0); HEMOGLOBIN 12.9 g/dl (12.0-15.5); MEAN CORPUSCULAR HEMOGLOBIN 29.9 pg (27.0-33.0); MEAN CORPUSCULAR HGB CONC 33.3 g/dl (32.0-36.5); MEAN CORPUSCULAR VOLUME 89.6 fl (80.0-96.0); PLATELET COUNT, AUTOMATED 146 10^3/uL (150-450); RED BLOOD COUNT 4.32 10^6/uL (4.00-5.40); WHITE BLOOD COUNT 9.2 10^3/uL (4.0-10.0)
[2019-09-30] MEDS: ENOXAPARIN 40 MG/0.4 ML SYRINGE (J1650) SC SCH (08:26)
[2019-09-30] MEDS: DULoxetine 30 MG CAP (CYMBALTA) PO SCH (08:26)
[2019-09-30] MEDS: SENOKOT S TAB PO SCH ×2 (08:26→20:54)
[2019-09-30] MEDS: ATORVASTATIN 20 MG TAB PO SCH (08:26)
[2019-09-30] MEDS: MULTIVITAMINS/MINERALS THERAP 1 TAB PO SCH (08:26)
[2019-09-30] MEDS: PANTOPRAZOLE 40MG TAB (PROTONIX) PO SCH (08:27)
[2019-09-30] MEDS: MOM 30ML SUSPENSION UDC PO PRN (08:27)
[2019-09-30 08:38] LABS: ALBUMIN 2.8 GM/DL (3.2-5.2); ALT/SGPT 18 U/L (12-78); BILIRUBIN,TOTAL 0.7 MG/DL (0.2-1.0); BLOOD UREA NITROGEN 9 MG/DL (7-18); CALCIUM LEVEL 7.8 MG/DL (8.5-10.1); CARBON DIOXIDE LEVEL 20 MEQ/L (21-32); CHLORIDE LEVEL 115 MEQ/L (98-107); CREATININE FOR GFR 0.56 MG/DL (0.55-1.30); GLOMERULAR FILTRATION RATE > 60.0 (>51); GLUCOSE, FASTING 59 MG/DL (70-100); POTASSIUM SERUM 4.2 MEQ/L (3.5-5.1); SODIUM LEVEL 142 MEQ/L (136-145); TOTAL PROTEIN 5.3 GM/DL (6.4-8.2)
[2019-09-30 09:15] LABS: LIPASE 199 U/L (73-393); TRIGLYCERIDES LEVEL 135 MG/DL (<150)
[2019-09-30 14:00] VITALS: BP 111/51
[2019-09-30] MEDS ORDERED: IBUPROFEN 600 MG TAB PO PRN (14:00)
[2019-09-30] MEDS ORDERED: FLEET ENEMA PR PRN (17:15)
--- NOTE | 2019-09-30 19:21 | IPNPDOC ---
Text Note Date of Service The patient was seen on 09/30/19. NOTE Subjective: -No complaints this morning, pain much improved, no morphine since midnight, asking to try some food -Reports that she is still constipated Objective: General: Alert, No Acute Distress Eye: PERRLA, Conjunctiva & lids normal, EOMI, anicteric ENT: MMM Neck: supple, no JVD Chest: Clear to auscultation, Normal air movement, without rales, rhonchi or wheezing Heart: RRR, no mrg Abdomen: Normal bowel sounds, Soft, non tender, no distention and no noted organomegaly Extremity: WWP, no LE edema Skin: no flushing, lesions, rashes Neuro: Normal Speech, Strength at 5/5 X4 ext, Cranial Nerves 3-12 NL Psych: Mental status NL, Mood NL, Oriented x 3 Labs: reviewed. Lipase now 199, triglycerides 135 Assessment: 58 yo woman with GERD, HLD non compliant with her statin, anxiety, depression, hypothyroidism and prior history of idiopathic pancreatitis 5 years ago who p resented to the ED with acute epigastric now admitted to medicine for acute pancreatitis that is improving. Pancreatitis: Epigastric pain with N/V and elevated lipase with unclear precipitant. Has HLD with hypertriglyceridemia and non complaint with statin, no alcohol or other culprit drugs -reduce fluids at 100cc/hr -had clears for breakfast, will now switch to regular for tomorrow AM -morphine 2Q4HP -s/p CT A/P without kvng abdominal pathology GERD: continue protonix Psych meds: continue PRN Ativan, trazodone and duloxetine HLD: lipitor 40 DVT ppx: lovenox VS,Fishbone, I+O VS, Fishbone, I+O Laboratory Tests 09/30/19 07:51 Vital Signs Date Time Temp Pulse Resp B/P (MAP) Pulse Ox O2 Delivery O2 Flow Rate FiO2 09/30/19 14:00 98.5 98 18 111/51 (71) 82 Room Air I&O- Last 24 Hours up to 6 AM 09/30/19 06:00 Intake Total 3300 ml Output Total 800 ml Balance 2500 ml SEBASTIÁN BENDER MD Sep 30, 2019 19:21
[2019-09-30 20:00] VITALS: BP 107/55
[2019-09-30] MEDS: traZODone 50 MG TAB PO SCH (20:54)
[2019-09-30] MEDS: LORazepam 0.5 MG TAB PO SCH (20:54)
[2019-10-01] MEDS: NS 1,000 ML IV SCH ×2 (01:16→10:12)
[2019-10-01 06:52] VITALS: BP 116/65
[2019-10-01 07:27] LABS: HEMATOCRIT 36.4 % (36.0-47.0); HEMOGLOBIN 12.4 g/dl (12.0-15.5); MEAN CORPUSCULAR HEMOGLOBIN 29.7 pg (27.0-33.0); MEAN CORPUSCULAR HGB CONC 34.1 g/dl (32.0-36.5); MEAN CORPUSCULAR VOLUME 87.3 fl (80.0-96.0); PLATELET COUNT, AUTOMATED 156 10^3/uL (150-450); RED BLOOD COUNT 4.17 10^6/uL (4.00-5.40); WHITE BLOOD COUNT 5.2 10^3/uL (4.0-10.0)
[2019-10-01 07:56] LABS: ALBUMIN 2.7 GM/DL (3.2-5.2); ALT/SGPT 16 U/L (12-78); BILIRUBIN,TOTAL 0.6 MG/DL (0.2-1.0); BLOOD UREA NITROGEN 4 MG/DL (7-18); CALCIUM LEVEL 8.1 MG/DL (8.5-10.1); CARBON DIOXIDE LEVEL 28 MEQ/L (21-32); CHLORIDE LEVEL 114 MEQ/L (98-107); CREATININE FOR GFR 0.65 MG/DL (0.55-1.30); GLOMERULAR FILTRATION RATE > 60.0 (>51); GLUCOSE, FASTING 85 MG/DL (70-100); POTASSIUM SERUM 3.7 MEQ/L (3.5-5.1); SODIUM LEVEL 143 MEQ/L (136-145)
[2019-10-01] MEDS: ATORVASTATIN 20 MG TAB PO SCH (09:01)
[2019-10-01] MEDS: SENOKOT S TAB PO SCH (09:01)
[2019-10-01] MEDS: PANTOPRAZOLE 40MG TAB (PROTONIX) PO SCH (09:01)
[2019-10-01] MEDS: ENOXAPARIN 40 MG/0.4 ML SYRINGE (J1650) SC SCH (09:01)
[2019-10-01] MEDS: MULTIVITAMINS/MINERALS THERAP 1 TAB PO SCH (09:01)
[2019-10-01] MEDS: DULoxetine 30 MG CAP (CYMBALTA) PO SCH (09:01)
--- NOTE | 2019-10-01 10:42 | DS.PDOC ---
Discharge Summary General Date of Admission Sep 28, 2019 at 18:30 Date of Discharge 10/01/2019 Attending Physician: SEBASTIÁN BENDER MD Discharge Summary PROCEDURES PERFORMED DURING STAY: None ADMITTING DIAGNOSES: 1. Acute pancreatitis DISCHARGE DIAGNOSES: 1. Acute pancreatitis 2. HLD 3. Anxiety 4. depression 5. Osteoarthritis 6. GERD COMPLICATIONS/CHIEF COMPLAINT: Pancreatitis. HISTORY OF PRESENT ILLNESS: 58 yo woman with GERD, HLD non compliant with her statin, anxiety, depression, hypothyroidism and prior history of idiopathic pancreatitis 5 years ago who presented to the ED wtih acute epigastric pain over 24 hours with associated prior constipation and trying to manage it with stool softeners at home. She reports nausea and severe abdominal pain when she att empted to eat that prompted her presentation. HOSPITAL COURSE: In the ED, she was hemodynamically stable and afebrile and was reporting severe epigastric pain. Studies were notable for lipase to 1103, hyperlipidemia and triglyceridemia to 309, WBC 8, Hgb 14,6, lactate wnl, Cr 0.8, bland UA and CT A /P that showed a previously noted small pericardial effusion and no evidence of radiologically apparent pancreatitis. She was given 1L Ns, morphine and zofran and admitted to medicine for acute pancreatitis. She was treated supportively with fluids and PRN morphine with eventual improvement by day 2 and by day 3 she is now eating a regular diet and back to baseline and being discharged home. I checked her lipid profile and she has HLD with hypertriglyceridemia and she corroborated not taking her pravastatin due to myalgias and I switched her to lipitor. DISCHARGE MEDICATIONS: Please see below. ALLERGIES: Please see below. PHYSICAL EXAMINATION ON DISCHARGE: VITAL SIGNS: Please see below. General: Alert, No Acute Distress Eye: PERRLA, Conjunctiva & lids normal, EOMI, anicteric ENT: MMM Neck: supple, no JVD Chest: Clear to auscultation, Normal air movement, without rales, rhonchi or whe ezing Heart: RRR, no mrg Abdomen: Normal bowel sounds, Soft, non tender, no distention. Extremity: WWP, no LE edema Skin: no flushing, lesions, rashes Neuro: Normal Speech, Strength at 5/5 X4 ext, Cranial Nerves 3-12 NL Psych: Mental status NL, Mood NL, Oriented x 3 LABORATORY DATA: Please see below. IMAGIN. A mild gastritis cannot be excluded and should be correlated clinically. 2. Small pericardial effusion unchanged compared to prior examinations. 3. No further acute abdominopelvic pathology appreciated. No ascites, focalinflammatory stranding, or adenopathy. PROGNOSIS: Good ACTIVITY: As tolerated. DIET: regular DISCHARGE PLAN: Home, please take your lipitor. DISPOSITION: Home DISCHARGE INSTRUCTIONS: 1. Home, please take your lipitor. ITEMS TO FOLLOWUP ON ON OUTPATIENT: 1. Abdominal pain DISCHARGE CONDITION: Stable. TIME SPENT ON DISCHARGE: 37 minutes. Vital Signs/I&Os Vital Signs Date Time Temp Pulse Resp B/P (MAP) Pulse Ox O2 Delivery O2 Flow Rate FiO2 10/01/19 06:52 98.6 97 20 116/65 (82) 96 Room Air I&O- Last 24 Hours up to 6 AM 10/01/19 06:00 Intake Total 3960 ml Output Total 1400 ml Balance 2560 ml Laboratory Data Labs 24H Laboratory Tests 2 10/01/19 06:35: Anion Gap 1L, Glomerular Filtration Rate > 60.0, Calcium Level 8.1L, Total Bilirubin 0.6, Aspartate Amino Transf (AST/SGOT) 21, Alanine Aminotransferase (ALT/SGPT) 16, Alkaline Phosphatase 50, Total Protein 5.0L, Albumin 2.7L, Albumin/Globulin Ratio 1.17 10/01/19 06:36: Nucleated Red Blood Cells % (auto) 0.0 CBC/BMP Laboratory Tests 10/01/19 06:35 10/01/19 06:36 Discharge Medications Scheduled Duloxetine HCl (Duloxetine HCl) 30 Mg Cap, 90 MG PO DAILY, (Reported) Glucosamine HCl (Glucosamine HCl) 1,500 Mg Tablet, 1,500 MG PO DAILY, (Reported) Lorazepam (Lorazepam) 0.5 Mg Tablet, 0.5 MG PO QHS, (Reported) Multivitamins (Thera M Plus Tablet) 1 Each Tablet, 1 TAB PO DAILY, (Reported) Pravastatin Sodium (Pravastatin Sodium) 20 Mg Tablet, 20 MG PO DAILY, (Reported) Trazodone HCl (Trazodone HCl) 50 Mg Tab, 75 MG PO QHS, (Reported) Turmeric Root Extract (Turmeric) 500 Mg Capsule, 500 MG PO DAILY, (Reported) Ubidecarenone (Co Q-10) 200 Mg Capsule, 200 MG PO DAILY, (Reported) Scheduled PRN Ibuprofen (Ibuprofen) 200 Mg Capsule, 800 MG PO QID PRN for PAIN, (Reported) Lorazepam (Lorazepam) 0.5 Mg Tab, 0.5 MG PO DAILY PRN for ANXIETY, (Reported) Pantoprazole Sodium (Protonix) 40 Mg Tablet.dr, 40 MG PO DAILY PRN for ULCERS, (Reported) Allergies Coded Allergies: tetracycline (Verified Allergy, Mild, rash, 01/09/19) codeine (Verified Adverse Reaction, Mild, vomits, 01/09/19) SEBASTIÁN BENDER MD Oct 01, 2019 10:42
[2019-10-01] MEDS ORDERED: ATOR40TA75 PO (10:44)
[2019-10-01] MEDS ORDERED: SENN-52 PO (10:44)
== END 2019-10-01 13:25 | disposition home or self-care (01) | DRG 282 ==
LOC: M ED 13:00 → EDBEDREQSVC 15:08 → M ED INP 18:30 → ENRESERVDT 20:00 → ENRESERVTM 20:00 → M MS5PR 20:30
PROVIDERS: ADMIT Internal Medicine; ATTEND Internal Medicine
DX: K85.90 Acute pancreatitis without necrosis or infection, unspecified (principal); F32.9 Major depressive disorder, single episode, unspecified; K21.9 Gastro-esophageal reflux disease without esophagitis; E78.5 Hyperlipidemia, unspecified; F41.9 Anxiety disorder, unspecified; M19.90 Unspecified osteoarthritis, unspecified site; Z91.14 Patient's other noncompliance with medication regimen; E03.9 Hypothyroidism, unspecified; Z79.899 Other long term (current) drug therapy; Z88.5 Allergy status to narcotic agent; Z88.8 Allergy status to other drugs, medicaments and biological substances

== ENCOUNTER → 2019-10-19 | Outpatient (REF) | payer BC ==
[~2019-10-19] MED LIST changes: +ATOR40TA75 PO; +COQ1200C PO; +CVS1500T PO; +DULO1CAP5; +IBUP200C28 PO; +RA T500C2 PO; +SENN-52 PO
[2019-10-19 19:46] LABS: ALBUMIN 4.4 GM/DL (3.2-5.2); ALT/SGPT 34 U/L (12-78); BILIRUBIN,TOTAL 0.7 MG/DL (0.2-1.0); BLOOD UREA NITROGEN 7 MG/DL (7-18); CALCIUM LEVEL 9.2 MG/DL (8.5-10.1); CARBON DIOXIDE LEVEL 32 MEQ/L (21-32); CHLORIDE LEVEL 103 MEQ/L (98-107); CREATININE FOR GFR 0.89 MG/DL (0.55-1.30); FREE T4 1.01 NG/DL (0.76-1.46); GLOMERULAR FILTRATION RATE > 60.0 (>51); GLUCOSE, FASTING 90 MG/DL (70-100); POTASSIUM SERUM 4.5 MEQ/L (3.5-5.1); SODIUM LEVEL 142 MEQ/L (136-145); TOTAL PROTEIN 7.2 GM/DL (6.4-8.2)
[2019-10-19 19:55] LABS: FOLATE 23.8 NG/ML; TOTAL 25(OH) VITAMIN D 34.9 NG/ML (30.0-100.0); VITAMIN B12 LEVEL 1556 PG/ML
== END ==
LOC: M SFHCADAM 15:24
PROVIDERS: ATTEND Physician Assistant
DX: Z86.39 Personal history of other endocrine, nutritional and metabolic disease (principal); E78.00 Pure hypercholesterolemia, unspecified

== ENCOUNTER → 2019-12-08 | Outpatient (CLI) | payer BC | LOC: M LABSMTC 13:04 | PROVIDERS: ATTEND Family Medicine | DX: Z11.59 Encounter for screening for other viral diseases (principal); Z20.828 Contact with and (suspected) exposure to other viral communicable diseases ==

== ENCOUNTER → 2020-01-10 | Outpatient (CLI) | payer OTHER, BC ==
--- NOTE | 2020-01-10 12:08 | REP ---
REASON: Pain after trauma due to slip and fall. Mild degenerative change is seen throughout the foot. There is no evidence of acute fracture. Electronically Signed by Girish Jackson DO 01/10/2020 12:24 P
== END ==
LOC: M LRY 10:57
PROVIDERS: ATTEND Physician Assistant
DX: S99.922A Unspecified injury of left foot, initial encounter (principal); X58.XXXA Exposure to other specified factors, initial encounter; Y92.89 Other specified places as the place of occurrence of the external cause; Y93.9 Activity, unspecified; Y99.9 Unspecified external cause status

== ENCOUNTER → 2020-01-19 | Outpatient (CLI) | payer BC ==
[~2020-01-19] MED LIST changes: +MAG100TA PO; +SM F PO; +VITAD1000T PO
--- NOTE | 2020-01-19 09:37 | REP ---
RIGHT UPPER QUADRANT ULTRASOUND: Real-time sonographic evaluation of the right upper quadrant performed. Gallbladder demonstrates no evidence of calculi, wall thickening or pericholecystic fluid. There is no intrahepatic or extrahepatic biliary dilatation, common bile duct measuring 5 mm. Liver and pancreas demonstrate no gross mass. Pancreas is not optimally seen due to overlying bowel gas. Right kidney demonstrates no hydronephrosis. Study is somewhat limited due to bowel gas. IMPRESSION: Essentially negative right upper quadrant ultrasound. Electronically Signed by Pradeep Batista MD 01/23/2020 06:21 P
== END ==
LOC: M RAD 08:28
PROVIDERS: ATTEND Internal Medicine Gastroenterology
DX: R10.13 Epigastric pain (principal)

== ENCOUNTER → 2020-01-26 | Outpatient (CLI) | payer BC, OTHER | LOC: M LABSMTC 11:05 | PROVIDERS: ATTEND Anesthesiology | DX: Z11.59 Encounter for screening for other viral diseases (principal) | CPT/HCPCS: C9803; U0003 ==

== ENCOUNTER 2020-01-29 08:28 | Day surgery (SDC) | payer BC ==
[~2020-01-29] VITALS: Ht 157.5 cm; Wt 62.1 kg
[~2020-01-29 08:28] MED LIST changes: +NS 1,000 ML IV ONE
[2020-01-29] MEDS ORDERED: LIDOCAINE 2% 100MG/5ML SDV (FOR ANES.) As Ordered ONE (09:38)
[2020-01-29] MEDS ORDERED: propofoL 200 MG/20 ML VIAL As Ordered ONE (09:38)
--- NOTE | 2020-01-29 10:18 | ROOR ---
Patient Name: Charlotte Stark Procedure Date: 01/29/2020 9:40 AM Date of : 1960 Age: 59 Room: [facility] Gender: Female Note Status: Finalized Procedure: Upper GI endoscopy Indications: Epigastric abdominal pain Providers: Lalo Schmidt MD Referring MD: ALINE Lambert Requesting Provider: Medicines: Monitored Anesthesia Care Complications: No immediate complications. Procedure: Pre-Anesthesia Assessment: - Prior to the procedure, a History and Physical was performed, and patient medications and allergies were reviewed. The patient is competent. The risks and benefits of the procedure and the sedation options and risks were discussed with the patient. All questions were answered and informed consent was obtained. Patient identification and proposed procedure were verified by the physician, the nurse and the anesthesiologist in the procedure room. Mental Status Examination: alert and oriented. Airway Examination: normal oropharyngeal airway and neck mobility. Respiratory Examination: clear to auscultation. CV Examination: normal. Prophylactic Antibiotics: The patient does not require prophylactic antibiotics. Prior Anticoagulants: The patient has taken no previous anticoagulant or antiplatelet agents. ASA Grade Assessment: II - A patient with mild systemic disease. After reviewing the risks and benefits, the patient was deemed in satisfactory condition to undergo the procedure. The anesthesia plan was to use monitored anesthesia care (MAC). Immediately prior to administration of medications, the patient was re-assessed for adequacy to receive sedatives. The heart rate, respiratory rate, oxygen saturations, blood pressure, adequacy of pulmonary ventilation, and response to care were monitored throughout the procedure. The physical status of the patient was re-assessed after the procedure. The Endoscope was introduced through the mouth, and advanced to the second part of duodenum. The upper GI endoscopy was accomplished without difficulty. The patient tolerated the procedure well. Findings: The examined esophagus was normal. Scattered mild inflammation characterized by erythema and granularity was found in the gastric antrum. Biopsies were taken with a cold forceps for Helicobacter pylori testing. Verification of patient identification for the specimen was done by the physician and nurse using the patient's name, date and medical record number. Estimated blood loss was minimal. The duodenal bulb and second portion of the duodenum were normal. Biopsies for histology were taken with a cold forceps for evaluation of celiac disease. Impression: - Normal esophagus. - Gastritis. Biopsied. - Normal duodenal bulb and second portion of the duodenum. Biopsied. Recommendation: - Patient has a contact number available for emergencies. The signs and symptoms of potential delayed complications were discussed with the patient. Return to normal activities tomorrow. Written discharge instructions were provided to the patient. - High fiber diet. - Continue present medications. - Await pathology results. - Use Pepcid (famotidine) 20 mg PO BID for 6 weeks. - Telephone GI clinic for pathology results in 2 weeks. - Return to primary care physician. Lalo Schmidt MD Lalo Schmidt MD 01/29/2020 10:17:27 AM Electronically signed by Lalo Schmidt MD Number of Addenda: 0 Note Initiated On: 01/29/2020 9:40 AM Estimated Blood Loss: Estimated blood loss was minimal.
[2020-01-29 10:35] VITALS: BP 109/57
== END 2020-01-29 10:50 | disposition home or self-care (01) ==
LOC: M OPP 08:28
PROVIDERS: ATTEND Internal Medicine Gastroenterology
DX: K29.70 Gastritis, unspecified, without bleeding (principal); R10.13 Epigastric pain; Z87.11 Personal history of peptic ulcer disease; Z87.891 Personal history of nicotine dependence; Z79.899 Other long term (current) drug therapy; Z88.5 Allergy status to narcotic agent; Z88.8 Allergy status to other drugs, medicaments and biological substances

== ENCOUNTER → 2020-02-21 | Outpatient (REF) | payer BC ==
[~2020-02-21] MED LIST changes: +D31000TA2 PO; -NS 1,000 ML IV ONE; +PANT40TA29 PO; -PANT40TA3 PO; -VITAD1000T PO
[2020-02-21 13:46] LABS: CHOLESTEROL RISK RATIO 3.979 (<5)
== END ==
LOC: M SFHCADAM 09:50
PROVIDERS: ATTEND Physician Assistant
DX: E78.00 Pure hypercholesterolemia, unspecified (principal)

== ENCOUNTER → 2020-06-06 | Outpatient (CLI) | payer BC ==
--- NOTE | 2020-06-08 14:07 | REP ---
INDICATION: PELVIC PAINPT AT REGISTRATION COMPARISON: None. TECHNIQUE: Transabdominal pelvic ultrasound followed by transvaginal examination for better evaluation of the endometrium and adnexa with color Doppler evaluation of the ovaries. FINDINGS: Bladder is under distended and measures 4.9 x 1.5 x 3.6 cm. Normal anteverted uterus measures 4.7 x 2.2 x 3.1 cm. The endometrial complex measures 2.4 mm thickness. No discrete uterine or endometrial abnormalities are appreciated. Bilateral ovaries are not visualized on either transabdominal or transvaginal imaging. IMPRESSION: Normal appearance of the uterus. <Electronically signed by Dwayne Guzman > 06/08/20 [id number]
== END ==
LOC: M RAD 10:15
PROVIDERS: ATTEND Physician Assistant
DX: R10.2 Pelvic and perineal pain (principal)

== ENCOUNTER → 2020-07-19 | Outpatient (CLI) | payer BC ==
[~2020-07-19] MED LIST changes: +DULC5TAB PO; +MIRA3350 PO; +ZYRTTAB8 PO
== END ==
LOC: M LABSMTC 12:26
PROVIDERS: ATTEND Anesthesiology
DX: Z01.812 Encounter for preprocedural laboratory examination (principal); Z20.828 Contact with and (suspected) exposure to other viral communicable diseases

== ENCOUNTER 2020-07-24 11:28 | Day surgery (SDC) | payer BC ==
[2020-07-24] VITALS (7 sets, daily range): BP systolic 98–120; BP diastolic 59–73
[~2020-07-24] VITALS: Ht 157.5 cm; Wt 67.0 kg
[~2020-07-24 11:28] MED LIST changes: +LIDOCAINE 2% 100MG/5ML SDV (FOR ANES.) As Ordered ONE; +MIDAZOLAM INJ 2MG/2ML VIAL (J2250 PER 1MG) As Ordered ONE; +ROCURONIUM BROMIDE 50 MG/5 ML VIAL As Ordered ONE; +fentaNYL 250 MCG/5 ML INJECTION (J3010) As Ordered ONE; +propofoL 200 MG/20 ML VIAL As Ordered ONE
[2020-07-24] MEDS ORDERED: ceFAZolin 2 GM/D5W 50 ML IV BAG (J0690 PER 500MG) As Ordered ONE (12:14)
[2020-07-24 12:18] LABS: HEMATOCRIT 43.4 % (36.0-47.0); HEMOGLOBIN 13.7 g/dl (12.0-15.5); MEAN CORPUSCULAR HEMOGLOBIN 28.2 pg (27.0-33.0); MEAN CORPUSCULAR HGB CONC 31.6 g/dl (32.0-36.5); MEAN CORPUSCULAR VOLUME 89.3 fl (80.0-96.0); PLATELET COUNT, AUTOMATED 219 10^3/uL (150-450); RED BLOOD COUNT 4.86 10^6/uL (4.00-5.40); WHITE BLOOD COUNT 8.4 10^3/uL (4.0-10.0)
[2020-07-24] MEDS ORDERED: ceFAZolin SOD 2 GM in IV 1 EA IV ONE (12:30)
[2020-07-24] MEDS ORDERED: BUPIVACAINE HCL 0.25% 10ML VIAL As Ordered ONE (12:54)
[2020-07-24] MEDS ORDERED: ePHEDrine SULFATE 25 MG/5 ML(5MG/ML) SYRINGE As Ordered ONE (13:37)
[2020-07-24] MEDS ORDERED: PHENYLephrine HCL 500 MCG/5 ML (100MCG/ML) SYRINGE (J2370) As Ordered ONE (13:37)
[2020-07-24] MEDS ORDERED: dexameTHASONE 4 MG/ML 1ML VIAL (J1100 PER 1MG) As Ordered ONE (13:38)
[2020-07-24] MEDS ORDERED: ONDANSETRON 4MG/2ML VIAL As Ordered ONE (13:57)
[2020-07-24] MEDS ORDERED: METOCLOPRAMIDE INJ 10MG/2ML VIAL (J2765 PER 1) As Ordered ONE (13:57)
[2020-07-24] MEDS ORDERED: ACETAMINOPHEN 1000MG 100ML IV BTL (OFIRMEV) (J0131 PER 10MG) As Ordered ONE ×2 (13:57→15:50)
[2020-07-24] MEDS ORDERED: KETOROLAC 60MG 2ML VIAL As Ordered ONE (13:58)
[2020-07-24] MEDS ORDERED: SUGAMMADEX SODIUM 500 MG/5 ML VIAL (BRIDION) As Ordered ONE (13:58)
[2020-07-24] MEDS ORDERED: ROCURONIUM BROMIDE 50 MG/5 ML VIAL As Ordered ONE (14:04)
--- NOTE | 2020-07-24 15:07 | ROOPDOC ---
[facility] Report Of Operation Report of Operation DATE OF PROCEDURE: 07/24/20 OPERATIVE REPORT: Preoperative diagnosis: pelvic pain, endometriosis. Postoperative diagnosis: Same. Procedure: Robotic-assisted laparoscopic hysterectomy, bilateral salpingo- oophorectomy, cystoscopy. Surgeon: Ashley Putnam M.D. Cloth Checker: Thelma Kelly NP Findings: Uterus with evidence of prior tubal sterilization. Scarring anteriorly and posteriorly c/w endometriosis. Dense adhesions of bladder to lower uterine segment. EBL: 100 mL's. Urine output: 225 mL's. Operative summary: Patient was taken to the operating room where general endotracheal anesthesia was induced. She was prepped and draped in sterile fashion in the dorsal lithotomy position. A Belle Catheter was placed. A V care uterine manipulator was placed. A Periumbilical incision was made with a scalpel. . A Veress needle was placed through this incision. Intra-abdominal location of Veress needle was assessed with saline filled syringe. A pneumoperitoneum was created. The Veress needle was removed. An 8 mm trocar using the Visiport was inserted through this incision. Three 8 mm suprapubic ports were placed under direct visualization The patient was placed in Trendelenburg position. The da Bruno surgical robot was docked to the ports. Using the fenestrated bipolar instrument and vessel sealer., the IP ligaments a nd broad ligaments were coagulated and incised. The round ligaments were coagulated and incised. The anterior and posterior leaves of the broad ligament were . Bladder flap was created. The uterine vessels were coagulated and incised using monopolar Endo Brooks. A colpotomy was created in the upper vagina at the level of the V care Cup. The specimen including the uterus, c ervix, fallopian tubes and ovaries was removed through the vagina. The vaginal cuff was closed with #1 V lock suture in running fashion. Cystoscopy was performed using a 70 cystoscope. Bilateral ureteral jets were identified. No evidence of injury to the bladder. The cystoscope was removed. All instruments removed. The skin was closed with 4-0 Monocryl subcuticular sutures. Thelma Kelly NP assisted with all aspects of the procedure. She helped position the patient. She helped insert the ports and manipulate the uterus. She removed the specimen. ASHLEY PUTNAM MD Jul 24, 2020 15:07
[2020-07-24] MEDS ORDERED: OXYC1TAB23 PO (15:08)
[2020-07-24] MEDS ORDERED: IBUP-1022 PO (15:09)
[2020-07-24] MEDS ORDERED: fentaNYL 100 MCG/2 ML INJECTION (J3010) As Ordered ONE (15:27)
[2020-07-24] MEDS: oxyCODONE 5MG TAB PO PRN ×2 (15:31→16:03)
[2020-07-24] MEDS: fentaNYL 100 MCG/2 ML INJECTION (J3010) IV PRN ×2 (15:32→15:53)
[2020-07-24] MEDS ORDERED: ONDANSETRON 4MG/2ML VIAL IV PRN ×2 (16:00)
[2020-07-24] MEDS ORDERED: PERCOCET 5MG/325MG TAB PO PRN ×2 (16:00)
[2020-07-24] MEDS ORDERED: MORPHINE 4 MG/ML 1ML VIAL/SYRINGE (J2270) IV PRN (16:00)
[2020-07-24] MEDS ORDERED: MORPHINE 2 MG/ML 1ML VIAL (J2270) IV PRN (16:00)
[2020-07-24] MEDS ORDERED: LR 1,000 ML IV SCH (16:00)
[2020-07-24] MEDS: LR 1,000 ML IV SCH (16:42)
[2020-07-24] MEDS: KETOROLAC 30 MG/ML 1ML VIAL IV PRN (20:26)
[2020-07-25 01:30] VITALS: BP 101/61
[2020-07-25 06:00] VITALS: BP 140/62
--- NOTE | 2020-07-25 07:14 | ECGEPIP ---
[facility] Test Date: 2020-07-24 Pat Name: AMBER GUERIN Department: Room: - Gender: Female Manager Statistical: [facility] : 1960 Requested By: ASHLEY Ponce Order Number: [id number] Reading MD: Ector Green Measurements Intervals [place] Rate: 82 P: 51 ND: 129 QRS: 58 QRSD: 94 T: 61 QT: 355 QTc: 415 Interpretive Statements Normal sinus rhythm Low voltages with slow precordial R wave progression and persistent S waves V5 a and V6; body habitus versus pulmonary disease. Nonspecific ST/T wave abnormalities. Slightly faster rate but otherwise unchanged from 03/30/17 Electronically Signed on 07-25-2020 7:13:53 EST by Ector Green
[2020-07-25] MEDS: KETOROLAC 30 MG/ML 1ML VIAL IV PRN (09:08)
[2020-07-25 10:00] VITALS: BP 108/58
[2020-07-25] MEDS: LR 1,000 ML IV SCH ×2 (10:21→10:22)
[2020-07-25] MEDS ORDERED: TRAM37.53 PO (10:30)
== END 2020-07-25 12:38 | disposition home or self-care (01) ==
LOC: M SDC 11:28 → M MSPAV 16:29 → M SDC 07-25 12:38
PROVIDERS: ATTEND Specialist
DX: N80.9 Endometriosis, unspecified (principal); N83.292 Other ovarian cyst, left side; E78.00 Pure hypercholesterolemia, unspecified; K59.09 Other constipation; K21.9 Gastro-esophageal reflux disease without esophagitis; M54.9 Dorsalgia, unspecified; F41.9 Anxiety disorder, unspecified; F32.9 Major depressive disorder, single episode, unspecified; Z79.899 Other long term (current) drug therapy; Z88.5 Allergy status to narcotic agent
CPT/HCPCS: 36415; 58571; 85027; 86850; 86900; 86901; 88307; 93005; J0131; J0690; J1100; J1885; J2250; J2270; J2370; J2405; J2765; J3010

== ENCOUNTER → 2020-11-29 | Outpatient (REF) | payer BC ==
[~2020-11-29] MED LIST changes: +IBUP-1022 PO; -LIDOCAINE 2% 100MG/5ML SDV (FOR ANES.) As Ordered ONE; -MIDAZOLAM INJ 2MG/2ML VIAL (J2250 PER 1MG) As Ordered ONE; +OXYC1TAB23 PO; -ROCURONIUM BROMIDE 50 MG/5 ML VIAL As Ordered ONE; +TRAM37.53 PO; -fentaNYL 250 MCG/5 ML INJECTION (J3010) As Ordered ONE; -propofoL 200 MG/20 ML VIAL As Ordered ONE
== END ==
LOC: M SFHCADAM 14:06
PROVIDERS: ATTEND Family Medicine
DX: R05 Cough (principal)

== ENCOUNTER → 2021-03-10 | Outpatient (CLI) | payer BC ==
--- NOTE | 2021-03-10 08:44 | REPVR ---
PROCEDURE INFORMATION: Exam: MR Lumbar Spine Without Contrast Exam date and time: 03/10/2021 7:38 AM Age: 60 years old Clinical indication: Low back pain; Patient HX: Lbp, nki; Additional info: Ddd lumbar TECHNIQUE: Imaging protocol: Multiplanar magnetic resonance images of the lumbar spine without intravenous contrast. COMPARISON: CT ABD/PEL W/IV CONTRAST ONLY 09/28/2019 1:55 PM FINDINGS: Vertebrae: The lumbar vertebral bodies are normal in height,signal intensity and alignment.No acute fracture or dislocation is seen. Spinal epidural space: There is no evidence of epidural masses or hemorrhage. Spinal cord: The conus medullaris is normal. The cauda equina nerve roots demonstrate no crowding or displacement. L1-L2: There is no significant degenerative disc herniation.The spinal canal and neural foramina are patent and without significant stenosis. L2-L3: Mildly reduced in height and T2 signal indicating degeneration.There is a mild diffuse posterior bulge causing mild effacement of the thecal sac.The facet joints demonstrate mild degenerative hypertrophy and sclerosis.There is mild spinal canal narrowing, with an AP canal dimension of 10 mm. There is mild bilateral foraminal stenosis. L3-L4: There is a mild diffuse posterior bulge causing mild effacement of the thecal sac.The facet joints demonstrate moderate degenerative narrowing and sclerosis. There is mild spinal canal narrowing, with an AP canal dimension of 10 mm. There is mild bilateral foraminal stenosis. L4-L5: There is a mild diffuse posterior bulge causing mild effacement of the thecal sac.The facet joints demonstrate mild degenerative hypertrophy and sclerosis.There is thickening of the ligamentum flavum.There is no evidence of spinal canal narrowing. There is mild bilateral foraminal stenosis. L5-S1: There is a mild diffuse posterior bulge causing mild effacement of the thecal sac.The facet joints demonstrate mild degenerative hypertrophy and sclerosis.The spinal canal and neural foramina are patent and without significant stenosis. Soft tissues: The prevertebral soft tissues appear normal. IMPRESSION: MRI of the lumbar spine reveals multilevel degenerative spondylitic changes and degenerative disc disease as described above. Electronically signed by: Nigel Zepeda On 03/10/2021 08:44:10 AM
== END ==
LOC: M RAD 07:05
PROVIDERS: ATTEND Physician Assistant Surgical
DX: M51.36 Other intervertebral disc degeneration, lumbar region (principal); M51.26 Other intervertebral disc displacement, lumbar region

== ENCOUNTER → 2021-03-26 | Outpatient (REF) | payer BC | LOC: M SFHCADAM 12:17 | PROVIDERS: ATTEND Physician Assistant | DX: Z53.9 Procedure and treatment not carried out, unspecified reason (principal) ==

== ENCOUNTER → 2021-03-29 | Outpatient (CLI) | payer BC ==
[2021-03-29 10:10] LABS: HEMATOCRIT 43.1 % (36.0-47.0); HEMOGLOBIN 14.5 g/dl (12.0-15.5); MEAN CORPUSCULAR HEMOGLOBIN 30.3 pg (27.0-33.0); MEAN CORPUSCULAR HGB CONC 33.6 g/dl (32.0-36.5); MEAN CORPUSCULAR VOLUME 90.2 fl (80.0-96.0); PLATELET COUNT, AUTOMATED 208 10^3/uL (150-450); RED BLOOD COUNT 4.78 10^6/uL (4.00-5.40); WHITE BLOOD COUNT 6.9 10^3/uL (4.0-10.0)
[2021-03-29 10:43] LABS: ALBUMIN 3.8 GM/DL (3.2-5.2); ALT/SGPT 30 U/L (12-78); BILIRUBIN,TOTAL 0.7 MG/DL (0.2-1.0); BLOOD UREA NITROGEN 13 MG/DL (7-18); CALCIUM LEVEL 8.8 MG/DL (8.5-10.1); CARBON DIOXIDE LEVEL 30 MEQ/L (21-32); CHLORIDE LEVEL 109 MEQ/L (98-107); CHOLESTEROL LEVEL 268 MG/DL (<200); CREATININE FOR GFR 0.76 MG/DL (0.55-1.30); FREE T4 0.69 NG/DL (0.76-1.46); GLOMERULAR FILTRATION RATE > 60.0 (>51); GLUCOSE, FASTING 99 MG/DL (70-100); HDL CHOLESTEROL 40 MG/DL (>40); NON-HDL-C 228 MG/DL; POTASSIUM SERUM 4.9 MEQ/L (3.5-5.1); SODIUM LEVEL 140 MEQ/L (136-145); TOTAL PROTEIN 6.5 GM/DL (6.4-8.2); TRIGLYCERIDES LEVEL 405 MG/DL (<150)
== END ==
LOC: M LAB 09:36
PROVIDERS: ATTEND Physician Assistant
DX: E78.00 Pure hypercholesterolemia, unspecified (principal); Z86.39 Personal history of other endocrine, nutritional and metabolic disease; Z12.31 Encounter for screening mammogram for malignant neoplasm of breast